=== PATIENT | male | born 1990 | race Caucasian/White ===

== ENCOUNTER 2016-09-24 21:22 | Emergency (ER) | payer SELFPAY ==
[~2016-09-24] VITALS: Ht 180.3 cm; Wt 98.0 kg
[2016-09-24 21:23] VITALS: BP 142/80; PULSE 80; RESP 18; TEMP 97.6; O2SAT 98
[2016-09-24] MEDS ORDERED: SODIUM CHLOR 0.9% 1000 ML INJ 1,000 ML IV SCH (21:50)
--- NOTE | 2016-09-24 21:55 | PD ---
HPI Chief Complaint: Allergic/Adverse Reaction Time Seen by Provider: 21:50 Travel History International Travel<30 days: No Contact w/Intl Traveler<30days: No Traveled to known affect area: No History of Present Illness HPI Patient is a 25-year-old male presenting to emergency for evaluation of a possible allergic reaction. Patient states an hour and a half ago he ate shrimp , immediately after eating the shrimp he began to have facial swelling on the left side. Patient denies any iodine or shellfish allergy. Patient denies any shortness of breath, chest pain, difficulty breathing. He did have a tooth that fell out several weeks ago and he states that there feels like there is still pieces of the tooth in his gum. But he has had no pain, swelling prior to eating the shrimp this evening. Patient did have a reaction where his throat closed up any difficulty breathing when he had penicillin as a child. PFSH Past Medical History Medical History: Denies Significant Hx Diminished Hearing: No Medical other: Yes (recovering alcoholic) Tetanus Vaccination: > 5 Years Influenza Vaccination: No Social History Alcohol Use: No Tobacco Use: Yes (dip) Substance Use: No Allergies-Medications (Allergen,Severity, Reaction): Coded Allergies: Amoxicillin (Verified Allergy, Severe, Edema, 09/24/16) Penicillin (Verified Allergy, Unknown, 09/24/16) Reported Meds & Prescriptions Reported Meds & Active Scripts Active Claritin (Loratadine) 10 Mg Tab 10 Mg PO DAILY Medrol Dosepak (Methylprednisolone) 4 Mg Dspk 4 Mg PO DIRECTED Per Pharmacist direction Clindamycin (Clindamycin HCl) 300 Mg Cap 300 Mg PO Q6H 10 Days Review of Systems Except as stated in HPI: all other systems reviewed are Neg HENT: No: Headaches Cardiovascular: No: Chest Pain or Discomfort Respiratory: Positive: Wheezing, No: Shortness of Breath Gastrointestinal: No: Nausea, Abdominal Pain Musculoskeletal: Positive: Edema Physical Exam Narrative GENERAL: Well-developed, well-nourished, alert male. Resting comfortably in no acute distress. SKIN: Warm and dry. HEAD: Normocephalic. Left cheek is edematous. No erythema noted, nonfluctuant , nontender to palpation. MOUTH: Mucous membranes moist, no lesions, tongue and gums appear normal. Missing first molar on the left upper. EYES: Pupils equal and round. No scleral icterus. No injection or drainage. ENT: No nasal bleeding or discharge. Mucous membranes pink and moist. NECK: Trachea midline. No JVD. CARDIOVASCULAR: Regular rate and rhythm. No murmur appreciated. RESPIRATORY: No accessory muscle use. Scattered expiratory wheezing in bases.. Breath sounds equal bilaterally. GASTROINTESTINAL: Abdomen soft, non-tender, nondistended. Hepatic and splenic margins not palpable. MUSCULOSKELETAL: No obvious deformities. No clubbing. No cyanosis. No edema. NEUROLOGICAL: Awake and alert. No obvious cranial nerve deficits. Motor grossly within normal limits. Normal speech. PSYCHIATRIC: Appropriate mood and affect; insight and judgment normal. Data Data Last Documented VS Vital Signs Date Time Temp Pulse Resp B/P Pulse Ox O2 Delivery O2 Flow Rate FiO2 09/24/16 21:23 97.6 80 18 142/80 98 Orders Ecg Monitoring (09/24/16 21:50) Iv Access Insert/Monitor (09/24/16 21:50) Oximetry (09/24/16 21:50) Diphenhydramine Inj (Benadryl Inj) (09/24/16 22:00) Methylprednisolone So Succ Inj (Solumedr (09/24/16 22:00) Famotidine Inj (Pepcid Inj) (09/24/16 22:00) Albuterol Neb (Albuterol Neb) (09/24/16 22:00) Sodium Chlor 0.9% 1000 Ml Inj (Ns 1000 M (09/24/16 21:50) Sodium Chloride 0.9% Flush (Ns Flush) (09/24/16 22:00) Clindamycin (Cleocin) (09/24/16 23:30) Ct Facial Bones W/O Iv Cont (09/24/16 23:41) MDM Medical Decision Making Medical Screen Exam Complete: Yes Emergency Medical Condition: Yes Interpretation(s) Vital Signs Date Time Temp Pulse Resp B/P Pulse Ox O2 Delivery O2 Flow Rate FiO2 09/24/16 21:23 97.6 80 18 142/80 98 Differential Diagnosis Allergic reaction versus cellulitis versus abscess versus anaphylaxis versus other Narrative Course Patient is a 25-year-old male presented to emergency for evaluation of facial swelling that started immediately after ingesting shrimp approximately an hour and a half ago. Patient's vital signs are stable, he is well oxygenated on room air, airway is patent. Medications ordered. Patient presented to telemetry monitoring, continuous pulse oximetry, IV access initiated. 2310 patient reassessed, airway is patent, patient observed resting comfortably. Edema has not worsened nor has it receded on the left cheek. Clindamycin 1 dose ordered. Care of patient transferred to my attending physician who will determine patient 's disposition. Scripts Loratadine (Claritin)10 Mg Tab10 Mg PO DAILY #7 TAB Ref 0 Prov:Destinee Hill MD 09/25/16 Methylprednisolone Dosepak (Medrol Dosepak)4 Mg Dspk4 Mg PO DIRECTED #1 DSPK Ref 0 Per Pharmacist direction Prov:Destinee Hill MD 09/25/16 Clindamycin 300 Mg [id number] Mg PO Q6H 10 Days Ref 0 Prov:Destinee Hill MD 09/25/16 Cyn Hardy Sep 24, 2016 21:55
[2016-09-24] MEDS ORDERED: FAMOTIDINE 20 MG/2 ML VIAL IV PUSH ONE (22:00)
[2016-09-24] MEDS ORDERED: SODIUM CHLORIDE 0.9% FLUSH 5 ML FLUSH IVF PRN (22:00)
[2016-09-24] MEDS ORDERED: RESP: ALBUTEROL 2.5 MG/3 ML NEB (SCH) INH ONE (22:00)
[2016-09-24] MEDS ORDERED: methylPREDNISolone SOD SUCC 125 MG/2 ML VIAL IVP ONE (22:00)
[2016-09-24] MEDS ORDERED: diphenhydrAMINE HCL 50 MG/ML VIAL IVP ONE (22:00)
[2016-09-24] MEDS ORDERED: CLINDAMYCIN 150 MG CAP PO ONE (23:30)
--- NOTE | 2016-09-24 23:40 | PD ---
Physical Exam Narrative General: The patient is a well-developed well-nourished male in no acute distress. Head and Neck exam: Head is normocephalic atraumatic. Eyes: Pupils are equal round and reactive to light. Nose: Midline septum with pink mucous membranes Mouth: The patient has multiple areas of dental decay noted on examination. The patient on examination has a broken off bicuspid in the left side of the jaw which is the area of interest. The patient has mild gingival erythema, no edema, no chelsey abscess formation. Moist mucus membranes. Posterior oropharynx is not erythematous. No tonsillar hypertrophy. Uvula midline. Airway patent. Neck: No palpable lymphadenopathy. No nuchal rigidity. No thyromegaly. Cardiovascular: Regular rate and rhythm without murmurs, gallops, or rubs. Lungs: Clear to auscultation bilaterally. No wheezes, rhonchi, or rales. Abdomen: Soft, without tenderness to palpation in all 4 quadrants of the abdomen. No guarding, rebound, or rigidity. Normal bowel sounds are audible. Extremities: No clubbing, cyanosis, or edema. 2+ pulses in all 4 extremities. Back: No spinous process tenderness to palpation. No costovertebral angle tenderness to palpation. Neurologic Exam: Grossly nonfocal. Skin Exam: No rash noted. Intact skin that is warm and dry. Data Data Last Documented VS Vital Signs Date Time Temp Pulse Resp B/P Pulse Ox O2 Delivery O2 Flow Rate FiO2 09/24/16 21:23 97.6 80 18 142/80 98 Orders Ecg Monitoring (09/24/16 21:50) Iv Access Insert/Monitor (09/24/16 21:50) Oximetry (09/24/16 21:50) Diphenhydramine Inj (Benadryl Inj) (09/24/16 22:00) Methylprednisolone So Succ Inj (Solumedr (09/24/16 22:00) Famotidine Inj (Pepcid Inj) (09/24/16 22:00) Albuterol Neb (Albuterol Neb) (09/24/16 22:00) Sodium Chlor 0.9% 1000 Ml Inj (Ns 1000 M (09/24/16 21:50) Sodium Chloride 0.9% Flush (Ns Flush) (09/24/16 22:00) Clindamycin (Cleocin) (09/24/16 23:30) Ct Facial Bones W/O Iv Cont (09/24/16 23:41) MDM Medical Record Reviewed: Yes Supervised Visit with MARCIAL: No Interpretation(s) Last Impressions Maxillofacial CT 09/24/16 0315 Signed Impressions: Service Date/Time: Saturday, September 24, 2016 23:57 - CONCLUSION: 1. Left facial soft tissue swelling. No focal fluid collection is seen. 2. No bony injury seen. 3. Maxillary sinus disease. Nas Buchanan MD Differential Diagnosis Salit 90s, versus salivary gland stone, versus dental abscess, versus sinusitis , versus acute allergic reaction to shrimp Narrative Course During the course of the patients emergency department visit, the patients history, examination, and differential diagnosis were reviewed with the patient. The patient had IV access obtained and blood work sent for analysis. The patient was initially evaluated by Cyn, the nurse practitioner. Please see her complete history and physical. The patient's case was checked out to me at the conclusion of her shift. The patient was provided Solu-Medrol 125 mg IV, albuterol nebulizer treatment times one, famotidine 20 mg IV, normal saline a 1 L IV fluid bolus, Benadryl 50 mg IV, and for suspected dental infection, clindamycin 300 mg by mouth 1. A CT scan of the maxillofacial area has been ordered to further evaluate for possible underlying abscess. Radiology studies were reviewed and remarkable for CT scan of the facial bones shows soft tissue swelling of the left face, no focal fluid collection. Maxillary sinus disease is noted. The patient's results were discussed with him, his questions were answered. The patient's swelling had improved. The patient was instructed to avoid strep. The patient was instructed to follow-up with a dentist. The patient was given a prescription for Medrol Dosepak taper, Claritin, and clindamycin. The patient is resting comfortably and feels better, is alert and in no distress. The patients results and examination findings were discussed with the patient. The repeat examination is unremarkable and benign. The history, exam, diagnostic testing, and current condition do not suggest any significant pathology to warrant further testing, continued ED treatment, admission, or surgical evaluation at this point. The vital signs have been stable. The patient does not have uncontrollable pain, intractable vomiting, or other significant symptoms. The patient's condition is stable and appropriate for discharge. The patient will pursue further outpatient evaluation with a primary care physician or other designated or consulting physician as indicated in the discharge instructions. The patient expressed understanding and was agreeable with this plan. Diagnosis Primary Impression: Left facial swelling Additional Impressions: Dental decay Shrimp allergy Referrals: Dentist Primary Care Physician Patient Instructions: Atypical Facial Pain (ED), Dental Caries (ED), Food Allergy (ED), General Instructions Med/Other Pt SpecificInfo: Prescription(s) given Scripts Loratadine (Claritin)10 Mg Tab10 Mg PO DAILY #7 TAB Ref 0 Prov:Destinee Hill MD 09/25/16 Methylprednisolone Dosepak (Medrol Dosepak)4 Mg Dspk4 Mg PO DIRECTED #1 DSPK Ref 0 Per Pharmacist direction Prov:Destinee Hill MD 09/25/16 Clindamycin 300 Mg [id number] Mg PO Q6H 10 Days Ref 0 Prov:Destinee Hill MD 09/25/16 Disposition: 01 DISCHARGE HOME Condition: Stable Destinee Hill MD Sep 24, 2016 23:40
--- NOTE | 2016-09-25 00:33 | RADRPT ---
EXAM DATE/TIME: 09/24/2016 23:57 [facility] COMPARISON: No previous studies available for comparison. INDICATIONS : Left sided facial swelling. RADIATION DOSE: 36.57 CTDIvol (mGy) MEDICAL HISTORY : ETOH and substance abuse SURGICAL HISTORY : None. ENCOUNTER: Initial ACUITY: 1 day PAIN SCORE: 6/10 LOCATION: Left facial TECHNIQUE: Volumetric scanning of the facial bones was performed. Using automated exposure control and adjustme nt of the mA and/or kV according to patient size, radiation dose was kept as low as reasonably achiev able to obtain optimal diagnostic quality images. FINDINGS: ORBITS: The orbital and infraorbital osseous structures are intact. The retroconal structures have a normal configuration. No radiopaque foreign bodies are seen. NASAL BONE: The nasal bone and maxillary spine are intact ZYGOMATIC ARCHES: Symmetric without evidence of fracture. 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 There is bilateral maxillary sinus disea se being worse on the right. The ethmoid and frontal sinuses are intact. No air-fluid levels seen. NASAL CAVITY: The nasal septum is intact and midline. The lacrimal ducts are intact. SOFT TISSUES: There is soft tissue swelling in the left side of the face. INTRACRANIAL: No intracranial air seen. CRIBIFORM PLATE: Grossly intact. CONCLUSION: 1. Left facial soft tissue swelling. No focal fluid collection is seen. 2. No bony injury seen. 3. Maxillary sinus disease. Nas Buchanan MD on September 25, 2016 at 0:29 Board Certified Radiologist. This report was verified electronically.
[2016-09-25] MEDS ORDERED: LORA-361 PO (03:05)
[2016-09-25] MEDS ORDERED: CLIN1CAP6 PO (03:05)
[2016-09-25] MEDS ORDERED: MEDR4PAK PO (03:05)
== END 2016-09-25 03:35 | disposition home or self-care (01) ==
LOC: NEPE 21:22
DX: R22.0 Localized swelling, mass and lump, head (principal); K02.9 Dental caries, unspecified; Z72.0 Tobacco use
CPT/HCPCS: 70486; 94664; 96374; 96375; 99283; J1200; J2930; J7030; J7613